=== PATIENT | male | born 2000 | race Caucasian/White ===

== ENCOUNTER 2018-05-19 15:39 | Emergency (ER) | payer OTHER ==
--- NOTE | 2018-05-19 16:52 | CT ---
CT HEAD NONCONTRAST: History: Fall, head injury. FINDINGS: There is no evidence of acute intracranial hemorrhage or infarct. Ventricles appear normal in size, s hape, and position. There is no mass effect or shift of midline structures. 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 No fractures are visible. IMPRESSION: No acute intracranial abnormalities are demonstrated. POS: [facility]
== END 2018-05-19 16:52 | disposition home or self-care (01) ==
LOC: SCSER 15:39
DX: S09.90XA Unspecified injury of head, initial encounter (principal); W18.2XXA Fall in (into) shower or empty bathtub, initial encounter
CPT/HCPCS: 70450